=== PATIENT | male | born 1985 | race Two or more races ===

== ENCOUNTER 2024-12-10 12:31 | Inpatient (IN) | payer MEDICARE, MEDICAID, SELFPAY ==
[2024-12-10 13:19] VITALS: BP 171/79; PULSE 110; RESP 22; TEMP 36.9; O2SAT 95
[2024-12-10 13:22] VITALS: BMI 85.6
--- NOTE | 2024-12-10 13:35 | XR_ITS ---
Examination: Venous duplex lower extremity sonogram, bilateral. Date and time of exam: December 10, 2024 1421 hours INDICATIONS: Nonhealing pain and swelling and wounds in the left ankle beginning 2 days ago Technique: Multiple sonographic images of the deep venous system have been obtained. B-mode/2-D grayscale imaging of vascular structures and Doppler spectral analysis (waveforms) and color performed Both legs are examined. Findings: No diagnostic visualization right popliteal perineal posterior tibial veins, left distal superficial femoral-popliteal perineal posterior tibial and greater saphenous veins No DVT demonstrated IMPRESSION: Severely limited study secondary to edema No acute DVT demonstrated
--- NOTE | 2024-12-10 13:36 | XR_ITS ---
Examination: PA chest single view TECHNIQUE: Upright PA chest single view Date and time: December 10, 2024 1420 hours INDICATIONS: Shortness of breath and weakness today. FINDINGS: The entire study is severely degraded by patient motion IMPRESSION: Nondiagnostic study, repeat
--- NOTE | 2024-12-10 13:37 | EDNOTE_ITS ---
<Statement entered by Jeanne Mendez MD - 12/24/24 06:26> I, Jeanne Mendez MD, have reviewed the history, exam, and assessment of the patient. I have evaluated the patient independently and agree with the plan of care documented by [ ]. All diagnostic studies were reviewed and discussed. I confirm the diagnosis as documented by the Resident. I was present during the Medical Decision Making for this patient. The patient's plan of care was created between myself and the Resident and consistent with our discussion of the patient's case. ED General RME/HPI General Chief complaint: General Adult/Misc Complain Stated complaint: L) FOOT SWOLLEN/WEEPING Time Seen by Provider: 12/10/24 13:32 Arrival date/time: 12/10/24 12:31 RME / HPI RME / HPI narrative: 29-year-old male with past medical history of schizophrenia due to an open wound on his left lower extremity. Patient's mother was at bedside and help with the history taking. Patient stated that he has been having swelling for the past few days and that around 2 days ago he noticed blistering on his left lower extremity. Today when he went to the bathroom one of the blisters ruptured and there was clear discharge. Patient stated that he has been having some chills and some subjective fevers, but denies having any other associated symptoms at this time. Denies any smoking, drugs, alcohol Related Data Allergies Allergy/AdvReac Type Severity Reaction Status Date / Time No Known Allergies Allergy Verified 12/10/24 12:36 Review of Systems Review of Systems Systems Reviewed: All systems reviewed, normal except as documented Past Medical History Past Medical History Comments PMH COMMENT: PMH: Schizophrenia Allergies: NKDA Social Hx: Denies any smoking, drugs, alcohol ED Exam Narrative Physical exam: Gen: A&O X 3, NAD, obese HEENT: NCAT, EOMI, Pupils reactive FRAN, not icteric. External ears normal. No rhinorrhea. Moist mucous membranes. Neck: short neck, full range of motion, no observable masses, No meningeal sign. Lungs: No Respiratory distress, clear bilateral. CV: RRR, no murmurs. Abdomen: Soft, nondistended, nontender, No rebound tenderness. MSK: No joint swelling, no redness, peripheral pulses presents, lumbar with no edema. Left lower extremity swollen with an open wound anteriorly, but no current discharge at this time. Venous stasis changes. Skin: No rashes, petechiae, lesions. Neuro: No focal neurological deficits appreciated, sensory and motor intact. Psych: Cooperative, flat effect. Course Quality Measures none Orders Category Date Time Status COVID-19 Screening Questionnaire NOW Care 12/10/24 15:35 Active Decision to Admit X1 Care 12/10/24 15:35 Active IV [Insert IV] NOW Care 12/10/24 15:38 Active Wound Care [Wound Care] NOW Care 12/10/24 13:35 Active CXRP [XR chest 1V portable] Stat Exams 12/10/24 13:36 Completed US venous doppler LE BI Stat Exams 12/10/24 13:35 Completed CBC [CBC] Stat Lab 12/10/24 14:10 Completed CMP [Comprehensive Metabolic Panel] Stat Lab 12/10/24 14:10 Completed CRP [C-Reactive Protein] Stat Lab 12/10/24 15:16 Ordered Drug Screen,Urine Stat Lab 12/10/24 13:36 Ordered ESR [Sed Rate (ESR)] Stat Lab 12/10/24 15:16 Ordered Lactic Acid [Lactate (Lactic Acid)] Stat Lab 12/10/24 14:10 Completed Magnesium Stat Lab 12/10/24 14:10 Completed Procalcitonin Stat Lab 12/10/24 14:10 Completed UA [Urinalysis] Stat Lab 12/10/24 13:36 Ordered Doxycycline Inj [Vibramycin Inj] 100 mg Med 12/10/24 15:37 Active Sodium Chloride 0.9% (Pop) [NS 0.9% mini bag] 100 ml IV X1 cefTRIAXone/D5w 1gm IV premix [Rocephin/D5w 1gm IV Med 12/10/24 15:38 Active premix] 1 gm in 50 ml IV X1 Vital Signs Vital signs: Vital Signs Temperature 98.4 F 12/10/24 13:19 Pulse Rate 110 H 12/10/24 13:19 Respiratory Rate 22 H 12/10/24 13:19 Blood Pressure 171/79 H 12/10/24 13:19 Pulse Oximetry (%) 95 12/10/24 13:19 Oxygen Delivery Method Room Air 12/10/24 13:19 Discharge Plan Plan Patient Disposition: Admit Acute Care w/in Hospital Prescriptions/Referrals Referrals: No Primary/Family,Physician [Primary Care Provider] - In 1 week Problem List Clinical Impression: Cellulitis Patient/Caregiver Discharge Instructions Print Language: Cymraes Stand Alone Forms: Lynn Award Info., Patient Portal Info Letter MDM Narrative MDM hospital course: Patient was seen and evaluated by myself on arrival. Diagnostic labs and imaging were ordered. Patient's WBC was 18.5, lactic acid was normal, but procalcitonin was elevated at 1.6. Ordered Rocephin and doxycycline. 1535: Spoke with IM team for hospital admission for cellulitis and need for antibiotics. Will come and assess the patient for admission. Case disclosed with Attending Dr. Vanessa Saunders PGY2 Disclaimer: Even though this this note was dictated by speech recognition and even though it was carefully revised there may still be minor errors in tree killer due to voice recognition software. Medication Administration(s) Medication Administration History Doxycycline Hyclate 100 mg/ (Sodium Chloride) 100 mls @ 100 mls/hr IV X1 ONE Stop: 12/10/24 16:36 Ceftriaxone Sodium/Dextrose (Rocephin/D5w 1gm Iv Premix) 1 gm in 50 mls @ 100 mls/hr IV X1 ONE Stop: 12/10/24 16:07
[2024-12-10 14:23] LABS: Lactate (Lactic Acid) 1.4 mMol/L (0.4-2.0)
[2024-12-10 14:25] LABS: Basophils # (Auto) 0.1 Thou/mm3 (0.0-0.2); Basophils % (Auto) 0 % (0-2.5); Eosinophils # (Auto) 0.2 Thou/mm3 (0.0-0.5); Eosinophils % (Auto) 1 % (0-10); Hematocrit 41.3 % (41.0-53.0); Hemoglobin 12.7 g/dL (13.5-16.0); Immature Granulocytes Auto 0.12 Thou/mm3 (0.00-0.00); Lymphocytes # (Auto) 2.1 Thou/mm3 (1.0-4.8); Lymphocytes % (Auto) 12 % (10-50); Mean Corpuscular HGB Conc 30.8 g/dl (31.0-37.0); Mean Corpuscular Hemoglobin 26.4 pg (25.0-35.0); Mean Corpuscular Volume 86 fL (80-100); Monocytes # (Auto) 1.0 Thou/mm3 (0.0-0.8); Monocytes % (Auto) 5 % (0-12); Neutrophils # (Auto) 15.0 Thou/mm3 (1.8-7.7); Neutrophils % (Auto) 81 % (37-80); Nucleated Red Blood Cell # 0.00 Thou/mm3 (0.00-0.00); Nucleated Red Blood Cell % 0 /100 WBC (0); Platelet Count 168 Thou/mm3 (140-440); RDW Standard Deviation 47.2 fL (35.1-43.9); Red Blood Count 4.81 Miln/mm3 (4.50-5.90); White Blood Count 18.5 Thou/mm3 (3.8-10.6)
[2024-12-10 15:01] LABS: Alanine Aminotransferase 14 U/L (10-49); Albumin, Serum 3.9 gm/dL (3.5-5.0); Albumin/Globulin Ratio 1.1 (1.2-2.2); Alkaline Phosphatase 88 U/L (46-116); Anion Gap 11 (7-16); Aspartate Amino Transferase 20 U/L (0-34); BUN/Creatinine Ratio 12 Ratio (12-20); Bilirubin,Total 0.5 mg/dL (0.3-1.2); Blood Urea Nitrogen 14 mg/dL (9-23); Calcium 9.4 mg/dL (8.3-10.6); Calcium (Corrected) 9.5 mg/dL (8.5-10.1); Carbon Dioxide 27.5 mMol/L (20.0-31.0); Chloride 100 mMol/L (98-107); Creatinine (Component) 1.2 mg/dL (0.6-1.3); Estimated Creatinine Clearance 176.8 mL/min (>60); Globulin 3.6 gm/dL (2.3-3.5); Glucose 135 mg/dL (74-106); Magnesium 1.2 mg/dL (1.6-2.6); Osmolality,Calculated 278 (275-295); Potassium 3.4 mMol/L (3.4-5.1); Procalcitonin 1.60 ng/ml (0.0-0.49); Sodium 138 mMol/L (136-145); Total Protein 7.5 gm/dL (5.7-8.2); eGFR > 60 See Note
--- NOTE | 2024-12-10 16:20 | ESHP_ITS ---
<Statement entered by Harpreet Murphy MD - 12/10/24 17:11> I Harpreet Murphy MD reviewed the note and agree with the resident's assessment & plan with modifications/additions/exceptions as below. I have personally reviewed labs, imaging, home meds/prior records, examined the patient, formulated and discussed management plan with the IM team. A 29-year-old male with history of schizophrenia, hypothyroidism, BMI 84 presented to ED with left lower extremity pain swelling and open wound failing outpatient management. Patient had redness, erythema for the past month and had been on antibiotic without any significant improvement. Will admit for lower extremity cellulitis, started on Rocephin and doxycycline empirically, electrolyte replacement, continue IV fluid resuscitation. Low risk for deep tissue infection based on clinical findings and lab workup, consult wound care for management. <Statement entered by Tyrell Love MD - 12/10/24 16:59> Patient was examined and case was reviewed with team including attending physician. Note reviewed, I agree with most of its contents and agree with the patient's care as documented by Dr. Foster 29-year-old male with past medical history of hypothyroidism, schizophrenia on aripripazole, depression anxiety, severe obesity who presented to the ED due to left lower extremity wound. Per the mother who was at the bedside patient has been having these blisters growing in the bilateral lower extremities have been healing. However last night mother noticed a blister on the left lower extremity that continue to grow and expand causing the patient 8 out of 10 pain. Later while walking the patient's blister exploded with a lot of serosanguineous fluid has been leaking of the extremity. He went to [facility] and was given an antifungal cream which relieved his initial symptoms for 1 day but later symptoms continue to worsen. Patient has very severe edema in the bilateral lower extremities likely secondary to his severe obesity also causing shortness of breath with exertion. Patient was admitted for left lower extremity cellulitis requiring IV antibiotics therapy. A1c was ordered as patient likely has underlying diabetes additionally we will cover empirically with IV Zosyn and doxycycline to cover for Pseudomonas and MRSA. Will continue to follow with a.m. labs. Case discussed with my attending Dr. Jeffrey Love MD PGY-2 Disclaimer: Despite multiple revisions, due to the dictation software being used, the document bellow may not be free of grammatical errors including phonetic/typographic errors. However, this does not deter from our commitment to providing health care in the patient's best interest in mind. Documentation for date of: 12/10/24 HPI History of Present Illness Chief complaint: left lower extremity open wound History of present illness: This is a 29 y.o male with past medical history of morbid obesity, schizophrenia, depression, anxiety, and hypothyrodism who presents to the emergency department for evaluation for left lower extremity open wound. Patient's mother was at bedside and help with the history taking. Patient noted to have blisters in his left lower extremity since last month with associated edema that started a few days ago. Patient was showering today when he noticed that one of the blisters ruptured and clear liquid was discharged. Patient has had subjective fever and chills at times. Patient denies any nausea, vomiting, chest pain or diarrhea. Patient admits to some dyspnea on exertion. Patient went to urgent care on 11/28/24 for the same complaint and was prescribed with 0.1% triamcinolone cream which provided relief at first but symptoms persisted. Patient currently reports a 8/10 pain in his LLE and denies any paresthesia. Allergies: NKDA PSH: denies PMH:morbid obesity, schizophrenia, depression, anxiety, and hypothyrodism SH: denies tobacco, alcohol and drug use Exam Vital Signs Temp Pulse Resp BP Pulse Ox O2 Del Method 98.4 F 110 H 22 H 171/79 H 95 Room Air 12/10/24 13:19 12/10/24 13:19 12/10/24 13:19 12/10/24 13:19 12/10/24 13:19 12/10/24 13:19 Narrative Exam General: Very obese body habitus, poor hygiene, in no acute distress HEENT: NCAT, anicteric sclera bilaterally Neck: Trachea midline, no thyromegaly Lungs: CTAB, in no respiratory distress. tachypnea of 22 CV: Tachycardia with regular rhythm. No murmurs or gallops appreciated. +2 pulses at DP bilaterally SKin: Venous stasis noted in legs. An approximately 5-0pdq2-5lz open wound noted on anterior distal left tibia with active oozing of clear/yellow discharge. No pus noted. Ext: LLE is erythemaous and edematous from ankle to mid left vo. No pitting edema noted. Neuro: No focal neurological deficits appreciated, sensory and motor intact. Psych: Cooperative, flat effect. Results: Labs 12/10/24 14:10 12/10/24 14:10 Labs: Short CBC 12/10/24 Range/Units 14:10 WBC 18.5 H (3.8-10.6) Thou/mm3 Hgb 12.7 L (13.5-16.0) g/dL Hct 41.3 (41.0-53.0) % Plt Count 168 (140-440) Thou/mm3 BMP 12/10/24 14:10 Sodium 138 Potassium 3.4 Chloride 100 Carbon Dioxide 27.5 BUN 14 Creatinine 1.2 Glucose 135 H Calcium 9.4 Liver Function 12/10/24 Range/Units 14:10 Total Bilirubin 0.5 (0.3-1.2) mg/dL AST 20 (0-34) U/L ALT 14 (10-49) U/L Alkaline Phosphatase 88 (46-116) U/L Albumin 3.9 (3.5-5.0) gm/dL Quality Measures Quality Measures none Medications Home Medications and Allergies Allergies Allergy/AdvReac Type Severity Reaction Status Date / Time No Known Allergies Allergy Verified 12/10/24 12:36 Visit Medications Discontinued Medications Doxycycline Hyclate 100 mg/ (Sodium Chloride) 100 mls @ 100 mls/hr IV X1 ONE Stop: 12/10/24 16:36 Ceftriaxone Sodium/Dextrose (Rocephin/D5w 1gm Iv Premix) 1 gm in 50 mls @ 100 mls/hr IV X1 ONE Stop: 12/10/24 16:07 Assessment & Plan Plan 29M with PMH of morbid obesity, schizophrenia, depression, anxiety, and hypothyrodism who presents to the ED with blisters and LLE edema [id number] and open wound of LLE x1day. One of the blisters ruptured when taking shower today with clear discharge. Reports subjective fever, chills and dyspnea on exertion. On exam, there is an approximately 5-6cm x 3-4cm open wound noted on anterior distal left tibia with active oozing of clear/yellow discharge. No pus noted. LLE is erythemaous and edematous from ankle to mid left vo. #SIRS due to cellulitis of LLE afebrile, RR of 22, HR of 110, WBC of 18.5 with left shift Lactate 1.4, procalcitonin 1.6, BMP unremarkable US with no evidence of DVT CXR unremarkable Plan: -Discontinue Rocephin - Continue Doxycyclin PO 100 BID (start 12/10) - Start Zosyn 3.375 q8hr (start 12/10) - Monitor vital signs - Trend WBC - Referral placed for wound care - Prn tylenol for pain/fever - Will consult ID/surgery if no response with IV antibiotics - IVF maintenance at rate of 100 - Pending blood culture - Pending CRP and ESR #Schizphrenia #Depression #Anxiety Chronic. managed with medications plan: -Will resume home meds once med rec is done #Hypothyrodism Chronic. Managed with medications Plan: - Will resume home med once med rec is done -Ordered TSH #Hypomagnesemia Mg of 1.2 in the ED Plan: -Replete Mg -CTM #Morbid obesity BMI of 85.7 Plan: -Ordered HbA1C, Liver panel, and lipid panel Dispo: Admit to med/surg DVT prophylaxis: Lovenox GI prophylaxis: None Bowel reg: None Diet: Low sodium (Will change to low cons carb with low sodium if found to be diabetic) Pain mgmt: prn Tylenol Lines: peripheral Code status: Full code Plan discussed with Dr. Murphy and Senior resident Dr. Omid Foster, DO PGY1
[2024-12-10 16:55] VITALS: BP 140/103; PULSE 101; PULSE 106; RESP 16; RESP 17; O2SAT 94
[2024-12-10] MEDS: PIPER/TAZO 3.375 GM PREMIX 3.375 GM/50 ML BAG IV (17:08)
[2024-12-10] MEDS: SODIUM CHLORIDE 0.9% 1000 ML 1,000 ML 100 ML IV (17:08)
[2024-12-10 17:50] LABS: Alanine Aminotransferase 15 U/L (10-49); Albumin, Serum 3.9 gm/dL (3.5-5.0); Alkaline Phosphatase 91 U/L (46-116); Aspartate Amino Transferase 21 U/L (0-34); Bilirubin,Direct 0.2 mg/dL (0.0-0.3); Bilirubin,Total 0.5 mg/dL (0.3-1.2); Cardiac Risk Estimate 3.9 RATIO (4.0-6.7); Cholesterol 134 mg/dL (132-200); HDL Cholesterol 34 mg/dL (40-60); LDL Cholesterol,Calculated 70 mg/dL (0-130); Thyroid Stimulating Hormone 13.74 uIU/mL (0.55-4.78); Total Protein 7.6 gm/dL (5.7-8.2); Triglycerides 148 mg/dL (30-150)
[2024-12-10 17:59] LABS: C-Reactive Protein 26.5 mg/dL (0.0-0.9)
[2024-12-10 18:00] LABS: Glucose Estimated Average 137 mg/dL (80-131); Hemoglobin A1C 6.4 % Hgb (4.8-6.0)
[2024-12-10 18:21] LABS: Sed Rate (ESR) 124 mm/hr (0-15)
[2024-12-10] MEDS: Magnesium Sulfate 4 GM Ivpb 4 GM/50 ML BAG IV (18:44)
[2024-12-10 20:35] VITALS: BP 143/103; PULSE 103; RESP 15; TEMP 36.9; O2SAT 93
--- NOTE | 2024-12-10 22:35 | PC.NURSE ---
per mother pt [facility] [address] [facility] [address] tel# [phone].
[2024-12-11] VITALS (7 sets, daily range): BP systolic 118–141; BP diastolic 73–99; PULSE 93–107; RESP 12–93; TEMP 36.7–37; O2SAT 90–99
[2024-12-11] MEDS: DOXYCYCLINE INJ 100 MG in SODIUM CHLORIDE 0.9% (POP) 100 ML IV ×3 (00:13→21:58)
[2024-12-11] MEDS: PIPER/TAZO 3.375 GM PREMIX 3.375 GM/50 ML BAG IV ×4 (01:44→23:09)
[2024-12-11] MEDS: ACETAMINOPHEN 325 MG TABLET 650 MG PO ×2 (02:22→12:47)
--- NOTE | 2024-12-11 02:43 | PC.NURSE ---
pt advised to use urinal for urine specimen, assisted pt to restroom- Pt had bm and voided, but pt was not able to collect urine in urinal.
--- NOTE | 2024-12-11 03:18 | PC.NURSE ---
pt has occasional several short laughs, giggles all by himself.
[2024-12-11 05:40] LABS: Basophils # (Auto) 0.0 Thou/mm3 (0.0-0.2); Basophils % (Auto) 0 % (0-2.5); Eosinophils # (Auto) 0.4 Thou/mm3 (0.0-0.5); Eosinophils % (Auto) 3 % (0-10); Hematocrit 37.7 % (41.0-53.0); Hemoglobin 11.6 g/dL (13.5-16.0); Immature Granulocytes Auto 0.06 Thou/mm3 (0.00-0.00); Lymphocytes # (Auto) 1.4 Thou/mm3 (1.0-4.8); Lymphocytes % (Auto) 10 % (10-50); Mean Corpuscular HGB Conc 30.8 g/dl (31.0-37.0); Mean Corpuscular Hemoglobin 25.9 pg (25.0-35.0); Mean Corpuscular Volume 84 fL (80-100); Monocytes # (Auto) 0.6 Thou/mm3 (0.0-0.8); Monocytes % (Auto) 4 % (0-12); Neutrophils # (Auto) 11.7 Thou/mm3 (1.8-7.7); Neutrophils % (Auto) 82 % (37-80); Nucleated Red Blood Cell # 0.00 Thou/mm3 (0.00-0.00); Nucleated Red Blood Cell % 0 /100 WBC (0); Platelet Count 155 Thou/mm3 (140-440); RDW Standard Deviation 45.4 fL (35.1-43.9); Red Blood Count 4.48 Miln/mm3 (4.50-5.90); White Blood Count 14.2 Thou/mm3 (3.8-10.6)
[2024-12-11 06:06] LABS: Alanine Aminotransferase 13 U/L (10-49); Albumin, Serum 3.5 gm/dL (3.5-5.0); Albumin/Globulin Ratio 1.1 (1.2-2.2); Alkaline Phosphatase 79 U/L (46-116); Anion Gap 11 (7-16); Aspartate Amino Transferase 18 U/L (0-34); BUN/Creatinine Ratio 14 Ratio (12-20); Bilirubin,Total 0.6 mg/dL (0.3-1.2); Blood Urea Nitrogen 13 mg/dL (9-23); Calcium 8.9 mg/dL (8.3-10.6); Calcium (Corrected) 9.3 mg/dL (8.5-10.1); Carbon Dioxide 27.2 mMol/L (20.0-31.0); Chloride 101 mMol/L (98-107); Creatinine (Component) 0.9 mg/dL (0.6-1.3); Estimated Creatinine Clearance 212.2 mL/min (>60); Globulin 3.2 gm/dL (2.3-3.5); Glucose 118 mg/dL (74-106); Magnesium 1.6 mg/dL (1.6-2.6); Osmolality,Calculated 278 (275-295); Phosphorous 3.0 mg/dL (2.4-5.1); Potassium 3.3 mMol/L (3.4-5.1); Sodium 139 mMol/L (136-145); Total Protein 6.7 gm/dL (5.7-8.2); eGFR > 60 See Note
[2024-12-11] MEDS: SODIUM CHLORIDE 0.9% 1000 ML 1,000 ML 100 ML IV ×2 (06:35→21:59)
--- NOTE | 2024-12-11 08:12 | ESPR_ITS ---
<Statement entered by Tyrell oLve MD - 12/12/24 06:39> Patient was examined and case was reviewed with team including attending physician. Note reviewed, I agree with most of its contents and agree with the patient's care. Tyrell Love MD PGY-2 Documentation for date of: 12/11/24 Subjective Subjective Interval history: 12/11/24: NAEON. Patient remains afebrile with tachycardia of 107 and saturating 99% on RA. Patient was examined and evaluated at bedside. Still reports clear/yellow drainage from his LLE wound. Denies any subjective fever or shortness of breath. Reports a 3/10 pain in his LLE. Exam Vital Signs Temp Pulse Resp BP Pulse Ox O2 Del Method 98.1 F 107 H 18 141/89 H 99 Room Air 12/11/24 00:00 12/11/24 02:42 12/11/24 02:42 12/11/24 00:00 12/11/24 00:00 12/11/24 00:00 Narrative Exam General: Very obese body habitus, poor hygiene, in no acute distress HEENT: NCAT, anicteric sclera bilaterally Neck: Trachea midline, no thyromegaly Lungs: CTAB, in no respiratory distress. tachypnea of 22 CV: Tachycardia with regular rhythm. No murmurs or gallops appreciated. +2 pulses at DP bilaterally SKin: Venous stasis noted in legs. An approximately 5-4etl1-0aa open wound noted on anterior distal left tibia with active oozing of clear/yellow discharge. No pus noted. Ext: LLE is erythemaous and edematous from ankle to mid left vo. No pitting edema noted. Neuro: No focal neurological deficits appreciated, sensory and motor intact. Psych: Cooperative, flat effect. Objective Labs 12/12/24 06:30 12/12/24 06:30 Labs: Laboratory Results - last 24 hr 12/10/24 12/10/24 12/11/24 14:10 16:50 05:03 WBC 18.5 H 14.2 H RBC 4.81 4.48 L Hgb 12.7 L 11.6 L Hct 41.3 37.7 L MCV 86 84 MCH 26.4 25.9 MCHC 30.8 L 30.8 L RDW Std Deviation 47.2 H 45.4 H Plt Count 168 155 Neut % (Auto) 81 H 82 H Lymph % (Auto) 12 10 [place] % (Auto) 5 4 Eos % (Auto) 1 3 Baso % (Auto) 0 0 Neut # (Auto) 15.0 H 11.7 H Lymph # (Auto) 2.1 1.4 [place] # (Auto) 1.0 H 0.6 Eos # (Auto) 0.2 0.4 Baso # (Auto) 0.1 0.0 Immature Gran # (Auto) 0.12 H 0.06 H Absolute Nucleated RBC 0.00 0.00 Immature Gran % 1 H 0 Nucleated RBC % 0 0 ESR 124 H Sodium 138 139 Potassium 3.4 3.3 L Chloride 100 101 Carbon Dioxide 27.5 27.2 Anion Gap 11 11 BUN 14 13 Creatinine 1.2 0.9 Estim Creat Clear Calc 176.8 212.2 eGFR > 60 > 60 BUN/Creatinine Ratio 12 14 Glucose [address] Glu mg/dL 137 H Hemoglobin A1c 6.4 H Calculated Osmolality 278 278 Lactic Acid 1.4 Calcium 9.4 8.9 Corrected Calcium 9.5 9.3 Phosphorus 3.0 Magnesium 1.2 L 1.6 Total Bilirubin 0.5 0.5 0.6 Direct Bilirubin 0.2 AST 20 21 18 ALT 14 15 13 Alkaline Phosphatase 88 91 79 C-Reactive Prot, Quant 26.5 H Total Protein 7.5 7.6 6.7 Albumin 3.9 3.9 3.5 Globulin 3.6 H 3.2 Albumin/Globulin Ratio 1.1 L 1.1 L Triglycerides 148 Cholesterol 134 LDL Cholesterol, Calc 70 HDL Cholesterol 34 L Cholesterol/HDL Ratio 3.9 L Procalcitonin 1.60 H TSH 13.74 H Quality Measures Quality Measures none Assessment & Plan Assessment Current Active Medications: Generic Name Dose Route Start Last Admin Trade Name Freq PRN Reason Stop Dose Admin Acetaminophen 650 mg 12/10/24 16:06 Acetaminophen 325 Mg Tablet PO 01/09/25 16:05 Q6H PRN Fever >101.5 Acetaminophen 650 mg 12/10/24 16:06 12/11/24 02:22 Acetaminophen 325 Mg Tablet PO 01/09/25 16:05 650 mg Q6H PRN Administration PAIN SCALE 1-3 (mild Aripiprazole 15 mg 12/11/24 09:00 Aripiprazole 5 Mg Tablet PO 01/10/25 08:59 QDAY CARLA Dextrose 25 ml 12/10/24 18:34 Dextrose 50%-Water Inj 50 Ml Syringe IV 01/09/25 18:33 Q15MIN PRN BG 50-70 responsive npo pt Dextrose 50 ml 12/10/24 18:34 Dextrose 50%-Water Inj 50 Ml Syringe IV 01/09/25 18:33 Q15MIN PRN BG <50 OR BG <70 & pt unresponsive Enoxaparin Sodium 40 mg 12/11/24 09:00 Enoxaparin Sod Inj 40 Mg/0.4 Ml Syringe SC 12/25/24 08:59 QDAY CARLA Glucagon 1 mg 12/10/24 18:34 Glucagon Inj 1 Mg Vial IM Q15MIN PRN BG <70, and no IV access Doxycycline Hyclate 100 mg/ 100 mls @ 100 mls/hr 12/10/24 21:00 12/11/24 00:13 Sodium Chloride IV 12/17/24 20:59 100 mls/hr BID CARLA Administration Sodium Chloride 1,000 mls @ 100 mls/hr 12/10/24 16:18 12/11/24 06:35 Ns IV 12/12/24 16:17 100 mls/hr .Q10H CARLA Administration Piperacillin/Tazobactam/Dextrose 3.375 gm in 50 mls @ 12.5 mls/hr 12/10/24 22:00 12/11/24 06:32 Zosyn IV 12/17/24 21:59 12.5 mls/hr Q8HR CARLA Administration Magnesium Sulfate 4 gm in 50 mls @ 12.5 mls/hr 12/11/24 07:28 Magnesium Sulfate Ivpb IV 12/11/24 11:27 X1 ONE Insulin Human Lispro 0 unit 12/11/24 07:30 12/11/24 07:06 Insulin Lispro (Admelog) 1 Unit/0.01 Ml Unit SC 01/10/25 07:29 Not Given AC CARLA Protocol Levothyroxine Sodium 50 mcg 12/11/24 09:00 Levothyroxine Sodium 25 Mcg Tablet PO 01/10/25 08:59 ACBR CARLA Ondansetron HCl 4 mg 12/10/24 16:06 Ondansetron Inj 2 Mg/Ml Inj 2 Ml IVP 01/09/25 16:05 Q6H PRN NAUSEA OR VOMITING Protocol Pharmacy Consult 1 each 12/10/24 22:47 Pharmacy To Consult Patient XX 01/09/25 22:46 PRN PRN CONSULT Sertraline HCl 100 mg 12/11/24 09:00 Sertraline Hcl 25 Mg Tablet PO 01/10/25 08:59 QDAY CARLA Plan 39M with PMH of morbid obesity, schizophrenia, depression, anxiety, and hypothyrodism who presents to the ED with blisters and LLE edema [id number] and open wound of LLE x1day. One of the blisters ruptured when taking shower today with clear discharge. Reports subjective fever, chills and dyspnea on exertion. On exam, there is an approximately 5-6cm x 3-4cm open wound noted on anterior distal left tibia with active oozing of clear/yellow discharge. No pus noted. LLE is erythemaous and edematous from ankle to mid left vo. #SIRS due to cellulitis of LLE Improved. afebrile, RR of 22, HR of 110, WBC of 18.5 with left shift, Lactate 1.4, procalcitonin 1.6, CRP: 26.5, BMP unremarkable on admission. WBC now downtrending to 14.2, RR of 18, HR of 94. US with no evidence of DVT CXR unremarkable Plan: -Discontinue Rocephin - Continue Doxycyclin PO 100 BID (start 12/10) - Continue Zosyn 3.375 q8hr (start 12/10) - Monitor vital signs - Trend WBC - Referral placed for wound care - Prn tylenol for pain/fever - Will consult ID/surgery if no response with IV antibiotics - IVF maintenance at rate of 100 - Pending blood culture - Patient will need compression dressing upon discharge #DM Uncontrolled. A1C of 6.4% Plan: - SSI - DM education - Patient need to follow up with PCP outpatient for diabetes management - Patient will need to be started on Metformin after discharge #Schizphrenia #Depression #Anxiety Chronic. managed with medications plan: -Coninue home abilify and sertraline #Hypothyrodism Chronic. Managed with medications; however, patient's mother states that he does not take his medications properly when at home. TSH: 13.74 Plan: - Continue home levothyroxine -Advised patient and his mother to take his home levothyroxine on empty stomach for better absorption #Electrolyte Abnormality #Hypomagnesemia #Hypokalemia Mg of 1.6, K of 3.3 Plan: - Repleted electrolytes accordingly -CTM #Morbid obesity BMI of 85.7 Liver panel and Lipid panel within normal limits Plan: -Ordered CPAP qhs -CTM Dispo: Admit to med/surg DVT prophylaxis: Lovenox GI prophylaxis: None Bowel reg: None Diet: Low sodium with low cons carb Pain mgmt: prn Tylenol Lines: peripheral Code status: Full code Plan discussed with Dr. Gold and Senior resident Dr. Omid Foster DO PGY1 Attending Provider Attestation/Addendum Shea Foster DO, attest that I was physically present for the dumont portions of the service and evaluated the patient with the resident and I reviewed and discussed the case with the resident and agree with the resident's findings and plans of care as documented above Patient seen and evaluated this AM. Patient sitting up in recliner with compression wrapping around left LE. Patient with flat affect. Mother, aunt and uncle at bedside state that the patient does not like to take medication. Mother has to hid the medications including synthroid in his food. Patient does not leave his home and family requesting psychiatric eval as well. However, recommended outpatient f/u as we do not have any psychiatric services available. Patient is also calm and cooperative, no signs of active psychosis. Patient has no active complaints. Discussed with wound care nurse who had just seen patient prior to my evaluation. Wound appears to have improved from images taken on admission. Discussed with mother that the patient will need compression wrapping and elevation. Will f/u with blood cultures. Patient has otherwise been afebrile. Bcx have been NGTD x 24h. If patient continues to improve and remains stable, anticipate DC in next 24h. Continue with doxycycline and zosyn at this time.
[2024-12-11] MEDS: ENOXAPARIN SOD INJ 40 MG/0.4 ML SYRINGE SC (09:29)
[2024-12-11] MEDS: SERTRALINE HCL 25 MG TABLET 100 MG PO (09:30)
[2024-12-11] MEDS: LEVOTHYROXINE SODIUM 25 MCG TABLET 50 MCG PO (09:30)
[2024-12-11] MEDS: Magnesium Sulfate 4 GM Ivpb 4 GM/50 ML BAG IV (09:41)
--- NOTE | 2024-12-11 10:24 | PC.SS ---
Patient Julián Solano is a 39 Year old female admitted for Cellulititis. SS met with patient at bedside to discuss discharge plan. Patient reports he lives at home with his mother, Margaux Lake who is patients surrogate decision maker, [phone]. Patient is able to complete all ADL's independently and reports he does not utilize any source of DME to Assist with ambulation. PCP is Aren Love. At time of discharge patient will return back home. family will provide transportation home. Discharge Plan: Home Next of kin:Mother, Margaux Lake
[2024-12-11 10:33] LABS: Collection Type, Urine Voided
[2024-12-11 10:46] LABS: Bilirubin,Urine Negative (Negative); Blood,Urine Negative (Negative); Clarity,Urine Clear (Clear/Hazy); Color,Urine Yellow (Lt Yel-Yel); Glucose, Urine Negative (Negative); Ketones,Urine Negative (Negative); Leukocyte Esterase,Urine Negative (Negative); Nitrite,Urine Negative (Negative); PH,Urine 6.0 (5.0-7.0); Protein,Urine Negative (Neg - Trace); RBC,Urine 2 /hpf (0-3); Specific Gravity,Urine 1.017 (1.001-1.035); Squamous Epithelial Cell,Urine 1 /hpf (0-5); Urobilinogen,Urine Negative mg/dL (0.0-1.0); WBC,Urine 1 /hpf (0-5)
[2024-12-11 10:53] LABS: Amphetamine/Methamp Scrn,U Negative (Negative); Barbiturate Screen,Urine Negative (Negative); Benzodiazepines Screen,Urine Negative (Negative); Benzoylecgonine Screen, Ur Negative (Negative); Fentanyl Screen,Urine Negative (Negative); Opiate Screen,Urine Negative (Negative); THC Screen,Urine Negative (Negative)
--- NOTE | 2024-12-11 23:11 | PC.NURSE ---
81% to 88% O2 sat on 1L/min/nc, pt asleep- Increased to 3L/min/nc with 92% O2 sat.
[2024-12-12] VITALS: BP 125/83; PULSE 94; RESP 18; TEMP 36.3; O2SAT 92
[2024-12-12 04:00] VITALS: BP 152/95; PULSE 88; RESP 20; TEMP 36.3; O2SAT 91
[2024-12-12] MEDS: PIPER/TAZO 3.375 GM PREMIX 3.375 GM/50 ML BAG IV (06:20)
[2024-12-12] MEDS: LEVOTHYROXINE SODIUM 25 MCG TABLET 50 MCG PO (06:20)
[2024-12-12 06:47] LABS: Basophils # (Auto) 0.1 Thou/mm3 (0.0-0.2); Basophils % (Auto) 0 % (0-2.5); Eosinophils # (Auto) 0.6 Thou/mm3 (0.0-0.5); Eosinophils % (Auto) 4 % (0-10); Hematocrit 40.1 % (41.0-53.0); Hemoglobin 12.4 g/dL (13.5-16.0); Immature Granulocytes Auto 0.15 Thou/mm3 (0.00-0.00); Lymphocytes # (Auto) 2.0 Thou/mm3 (1.0-4.8); Lymphocytes % (Auto) 15 % (10-50); Mean Corpuscular HGB Conc 30.9 g/dl (31.0-37.0); Mean Corpuscular Hemoglobin 26.3 pg (25.0-35.0); Mean Corpuscular Volume 85 fL (80-100); Monocytes # (Auto) 0.8 Thou/mm3 (0.0-0.8); Monocytes % (Auto) 6 % (0-12); Neutrophils # (Auto) 10.4 Thou/mm3 (1.8-7.7); Neutrophils % (Auto) 75 % (37-80); Nucleated Red Blood Cell # 0.00 Thou/mm3 (0.00-0.00); Nucleated Red Blood Cell % 0 /100 WBC (0); Platelet Count 185 Thou/mm3 (140-440); RDW Standard Deviation 46.6 fL (35.1-43.9); Red Blood Count 4.72 Miln/mm3 (4.50-5.90); White Blood Count 13.9 Thou/mm3 (3.8-10.6)
[2024-12-12 07:09] LABS: Alanine Aminotransferase 14 U/L (10-49); Albumin, Serum 3.7 gm/dL (3.5-5.0); Albumin/Globulin Ratio 1.0 (1.2-2.2); Alkaline Phosphatase 85 U/L (46-116); Anion Gap 10 (7-16); Aspartate Amino Transferase 17 U/L (0-34); BUN/Creatinine Ratio 11 Ratio (12-20); Bilirubin,Total 0.6 mg/dL (0.3-1.2); Blood Urea Nitrogen 9 mg/dL (9-23); Calcium 9.0 mg/dL (8.3-10.6); Calcium (Corrected) 9.2 mg/dL (8.5-10.1); Carbon Dioxide 27.7 mMol/L (20.0-31.0); Chloride 101 mMol/L (98-107); Creatinine (Component) 0.8 mg/dL (0.6-1.3); Estimated Creatinine Clearance 238.8 mL/min (>60); Globulin 3.6 gm/dL (2.3-3.5); Glucose 121 mg/dL (74-106); Magnesium 2.2 mg/dL (1.6-2.6); Osmolality,Calculated 277 (275-295); Phosphorous 3.3 mg/dL (2.4-5.1); Potassium 3.8 mMol/L (3.4-5.1); Sodium 139 mMol/L (136-145); Total Protein 7.3 gm/dL (5.7-8.2); eGFR > 60 See Note
[2024-12-12 08:00] VITALS: BP 163/78; PULSE 82; RESP 20; TEMP 36.4; O2SAT 99
--- NOTE | 2024-12-12 08:18 | PD.RESPRO ---
Documentation for date of: 12/12/24 Exam Vital Signs Temp Pulse Resp BP Pulse Ox O2 Del Method 97.3 F 88 20 152/95 H 91 L Nasal Cannula 12/12/24 04:00 12/12/24 04:00 12/12/24 04:00 12/12/24 04:00 12/12/24 04:00 12/12/24 04:00 Narrative Exam General: Very obese body habitus, poor hygiene, in no acute distress HEENT: NCAT, anicteric sclera bilaterally Neck: Trachea midline, no thyromegaly Lungs: CTAB, in no respiratory distress. tachypnea of 22 CV: Tachycardia with regular rhythm. No murmurs or gallops appreciated. +2 pulses at DP bilaterally SKin: Venous stasis noted in legs. An approximately [id number] open wound noted on anterior distal left tibia with active oozing of clear/yellow discharge. No pus noted. Ext: LLE is erythemaous and edematous from ankle to mid left vo. No pitting edema noted. Neuro: No focal neurological deficits appreciated, sensory and motor intact. Psych: Cooperative, flat effect. Objective Labs 12/12/24 06:30 12/12/24 06:30 Labs: Laboratory Results - last 24 hr 12/11/24 12/11/24 12/12/24 07:20 07:25 06:30 WBC 13.9 H RBC 4.72 Hgb 12.4 L Hct 40.1 L MCV 85 MCH 26.3 MCHC 30.9 L RDW Std Deviation 46.6 H Plt Count 185 D Neut % (Auto) 75 Lymph % (Auto) 15 [place] % (Auto) 6 Eos % (Auto) 4 Baso % (Auto) 0 Neut # (Auto) 10.4 H Lymph # (Auto) 2.0 [place] # (Auto) 0.8 Eos # (Auto) 0.6 H Baso # (Auto) 0.1 Immature Gran # (Auto) 0.15 H Absolute Nucleated RBC 0.00 Immature Gran % 1 H Nucleated RBC % 0 Sodium 139 Potassium 3.8 D Chloride 101 Carbon Dioxide 27.7 Anion Gap 10 BUN 9 Creatinine 0.8 Estim Creat Clear Calc 238.8 eGFR > 60 BUN/Creatinine Ratio 11 L Glucose 121 H Calculated Osmolality 277 Calcium 9.0 Corrected Calcium 9.2 Phosphorus 3.3 Magnesium 2.2 Total Bilirubin 0.6 AST 17 ALT 14 Alkaline Phosphatase 85 Total Protein 7.3 Albumin 3.7 Globulin 3.6 H Albumin/Globulin Ratio 1.0 L Ur Collection Type Voided Urine Color Yellow Urine Clarity Clear Urine pH 6.0 Ur Specific [place] 1.017 Urine Protein Negative Urine Glucose (UA) Negative Urine Ketones Negative Urine Blood Negative Urine Nitrite Negative Urine Bilirubin Negative Urine Urobilinogen (Auto) Negative Ur Leukocyte Esterase Negative Urine RBC 2 Urine WBC 1 Ur Squamous Epith Cells 1 Urine Bacteria None Urine Opiates Screen Negative Urine Fentanyl Screen Negative Ur Barbiturates Screen Negative U Amphetamin/Meth Scrn Negative U Benzodiazepines Scrn Negative U Cocaine Metab Screen Negative U Marijuana (THC) Screen Negative Quality Measures Quality Measures none Assessment & Plan Assessment Current Active Medications: Generic Name Dose Route Start Last Admin Trade Name Freq PRN Reason Stop Dose Admin Acetaminophen 650 mg 12/10/24 16:06 Acetaminophen 325 Mg Tablet PO 01/09/25 16:05 Q6H PRN Fever >101.5 Acetaminophen 650 mg 12/10/24 16:06 12/11/24 12:47 Acetaminophen 325 Mg Tablet PO 01/09/25 16:05 650 mg Q6H PRN Administration PAIN SCALE 1-3 (mild Aripiprazole 15 mg 12/11/24 09:00 12/11/24 09:30 Aripiprazole 5 Mg Tablet PO 01/10/25 08:59 15 mg QDAY CARLA Administration Dextrose 25 ml 12/10/24 18:34 Dextrose 50%-Water Inj 50 Ml Syringe IV 01/09/25 18:33 Q15MIN PRN BG 50-70 responsive npo pt Dextrose 50 ml 12/10/24 18:34 Dextrose 50%-Water Inj 50 Ml Syringe IV 01/09/25 18:33 Q15MIN PRN BG <50 OR BG <70 & pt unresponsive Enoxaparin Sodium 40 mg 12/11/24 09:00 12/11/24 09:29 Enoxaparin Sod Inj 40 Mg/0.4 Ml Syringe SC 12/25/24 08:59 40 mg QDAY CARLA Administration Glucagon 1 mg 12/10/24 18:34 Glucagon Inj 1 Mg Vial IM Q15MIN PRN BG <70, and no IV access Doxycycline Hyclate 100 mg/ 100 mls @ 100 mls/hr 12/10/24 21:00 12/11/24 21:58 Sodium Chloride IV 12/17/24 20:59 100 mls/hr BID CARLA Administration Sodium Chloride 1,000 mls @ 100 mls/hr 12/10/24 16:18 12/11/24 21:59 Ns IV 12/12/24 16:17 100 mls/hr .Q10H CARLA Administration Piperacillin/Tazobactam/Dextrose 3.375 gm in 50 mls @ 12.5 mls/hr 12/10/24 22:00 12/12/24 06:20 Zosyn IV 12/17/24 21:59 12.5 mls/hr Q8HR CARLA Administration Insulin Human Lispro 0 unit 12/11/24 07:30 12/11/24 18:06 Insulin Lispro (Admelog) 1 Unit/0.01 Ml Unit SC 01/10/25 07:29 Not Given AC CARLA Protocol Levothyroxine Sodium 50 mcg 12/11/24 09:00 12/12/24 06:20 Levothyroxine Sodium 25 Mcg Tablet PO 01/10/25 08:59 50 mcg ACBR CARLA Administration Ondansetron HCl 4 mg 12/10/24 16:06 Ondansetron Inj 2 Mg/Ml Inj 2 Ml IVP 01/09/25 16:05 Q6H PRN NAUSEA OR VOMITING Protocol Sertraline HCl 100 mg 12/11/24 09:00 12/11/24 09:30 Sertraline Hcl 25 Mg Tablet PO 01/10/25 08:59 100 mg QDAY CARLA Administration Plan 39M with PMH of morbid obesity, schizophrenia, depression, anxiety, and hypothyrodism who presents to the ED with blisters and LLE edema [id number] and open wound of LLE x1day. One of the blisters ruptured when taking shower today with clear discharge. Reports subjective fever, chills and dyspnea on exertion. On exam, there is an approximately 5-6cm x 3-4cm open wound noted on anterior distal left tibia with active oozing of clear/yellow discharge. No pus noted. LLE is erythemaous and edematous from ankle to mid left vo. #SIRS due to cellulitis of LLE Improved. afebrile, RR of 22, HR of 110, WBC of 18.5 with left shift, Lactate 1.4, procalcitonin 1.6, CRP: 26.5, BMP unremarkable on admission. WBC now downtrending to 14.2, RR of 18, HR of 94. US with no evidence of DVT CXR unremarkable Plan: -Discontinue Rocephin - Continue Doxycyclin PO 100 BID (start 12/10) - Continue Zosyn 3.375 q8hr (start 12/10) - Monitor vital signs - Trend WBC - Referral placed for wound care - Prn tylenol for pain/fever - Will consult ID/surgery if no response with IV antibiotics - IVF maintenance at rate of 100 - Pending blood culture - Patient will need compression dressing upon discharge #DM Uncontrolled. A1C of 6.4% Plan: - SSI - DM education - Patient need to follow up with PCP outpatient for diabetes management - Patient will need to be started on Metformin after discharge #Schizphrenia #Depression #Anxiety Chronic. managed with medications plan: -Coninue home abilify and sertraline #Hypothyrodism Chronic. Managed with medications; however, patient's mother states that he does not take his medications properly when at home. TSH: 13.74 Plan: - Continue home levothyroxine -Advised patient and his mother to take his home levothyroxine on empty stomach for better absorption #Electrolyte Abnormality #Hypomagnesemia #Hypokalemia Mg of 1.6, K of 3.3 Plan: - Repleted electrolytes accordingly -CTM #Morbid obesity BMI of 85.7 Liver panel and Lipid panel within normal limits Plan: -Ordered CPAP qhs -CTM Dispo: Admit to med/surg DVT prophylaxis: Lovenox GI prophylaxis: None Bowel reg: None Diet: Low sodium with low cons carb Pain mgmt: prn Tylenol Lines: peripheral Code status: Full code Plan discussed with Dr. Gold and Senior resident Dr. Lucio Foster, DO PGY1
[2024-12-12] MEDS: DOXYCYCLINE INJ 100 MG in SODIUM CHLORIDE 0.9% (POP) 100 ML IV (09:13)
[2024-12-12] MEDS: ENOXAPARIN SOD INJ 40 MG/0.4 ML SYRINGE SC (09:14)
[2024-12-12] MEDS: SERTRALINE HCL 25 MG TABLET 100 MG PO (09:14)
[2024-12-12 10:43] VITALS: BMI 85.8
--- NOTE | 2024-12-12 10:48 | ESDS_ITS ---
<Statement entered by Shea Gold DO - 12/13/24 07:31> I, Shea Gold DO, attest that I was physically present for the dumont portions of the service and evaluated the patient with the resident and I reviewed and discussed the case with the resident and agree with the resident's findings and plans of care as documented above <Statement entered by Vilma Bee MD - 12/12/24 17:52> I discussed with and supervised the recording studio intern physician who took care of this patient. I personally saw and examined the patient and discussed the assessment and plan with the entire medicine team, including my attending Dr. Gold, I agree with most of the assessment and plan as documented below Vilma Bee M.D. PGY-3 Planned Discharge Date 12/12/24 DS: Providers Provider Date of admission: 12/10/24 16:06 Primary care physician: Physician No Primary/Family Admitting Provider: Harpreet Murphy MD Attending Provider on Admission: Harpreet Murphy MD Consults: 12/10/24 16:34 Referral Wound Care Urgent Comment: 12/10/24 22:59 [facility] Referral - Knowledge Deficit Routine Comment: Positive screening for knowledge deficit needs. Attending Provider on DC: Dr. Gold Discharging Provider: Resident Alvina Anticipated date of discharge: 12/12/24 DS: Diagnosis Problem List Completed Was Problem List Reviewed/Reconciled?: Yes Hospital Course Hospital Course Hospital course: 39M with PMH of morbid obesity (BMI 85.9), schizophrenia, depression, anxiety, and hypothyrodism who presents to the ED with blisters and LLE edema and erythema [id number] and open wound of LLE x1day. Most of the history was provided by patient's mother as he does not speak much. One of the blisters ruptured with clear discharge when taking shower on the day of admission. Reportd subjective fever, chills and dyspnea on exertion. On exam, there was an approximately 5-6cm x 3-4cm open wound noted on anterior distal left tibia with active oozing of clear/yellow discharge. No pus noted. LLE was noted to erythemaous and edematous from ankle to mid left vo. Patient met the SIRS criteria due to cellulitis of the LLE with RR of 22, HR of 110, WBC of 18.5 with left shift, Lactate 1.4, procalcitonin 1.6, CRP: 26.5, and unremarkable BMP, UA, UDS on admission. US of LLE without any signs of DVT. CXR unremarkable. Patient was initially started on Rocephin which was discontinued and he was started on Doxycycline and Zosyn. Patient's LLE edema and erythema improved and WBC down-trended from 18.5 to 13.9, HR improved to 82. Adequate wound care was provided to the patient. Overall patient's condition improved since their admission. Patient will be discharged with prescription for oral doxycycline and augmenting for treatment of their left lower extremity cellulitis. Patient's vital signs remained stable however he was noted to have oxygen saturations in the 80s when sleeping. CPAP was ordered which was not tolerated by the patient. Spoke to director social for possibility of discharging patient with oxygen as need until evaluated with sleep studies with their PCP. Patient was noted to have A1C of 6.4%. Dietitian and pharmacy was consulted for patient education regarding diabetes diet and medical management. Patient will be discharged with metformin however will need to follow up with PCP in regards to correction management. Advised patient and family regarding lifestyle modifications for their morbid obesity despite normal LFTs and lipid panel and they need to follow up with their PCP in this regards as well. Patient has a history of hypothyroidism managed with levothyroxine, however he was noted to have TSH of 13.74. Patient's mother states that he does not take his medications properly at home and she has to cut his meds into small pieces and and mix them with food. Advised patient's mother that patient's thyroid medication should be taken on an empty stomach for better absorption. Patient will need to follow up with their PCP regarding their thyroid management as well. Patient's electrolyte abnormalities were repleted and monitored throughout their hospital stay. Patient is in stable condition for discharge. All questions answered and ED return precautions given. #SIRS due to cellulitis of LLE #DM #Schizphrenia #Depression #Anxiety #Hypothyrodism #Electrolyte Abnormality #Hypomagnesemia #Hypokalemia #Morbid obesity Plan discussed with Dr. Gold and Senior resident Dr. Cristal Foster, DO PGY1 Status at Discharge Functional status at discharge: independent ambulation Overall status at discharge: patient is back to baseline Time Spent with Patient Time attestation: Total time spent providing and/or coordinating discharge services: Time spent: Greater than 30 minutes Exam Vital Signs Temp Pulse Resp BP Pulse Ox O2 Del Method O2 Flow Rate 97.5 F 82 20 163/78 H 99 Nasal Cannula 4 12/12/24 08:00 12/12/24 08:00 12/12/24 08:00 12/12/24 08:00 12/12/24 08:00 12/12/24 08:00 12/12/24 08:00 Narrative Exam General: Very obese body habitus, poor hygiene, in no acute distress HEENT: NCAT, anicteric sclera bilaterally Neck: Trachea midline, no thyromegaly Lungs: CTAB, in no respiratory distress. CV: Tachycardia with regular rhythm. No murmurs or gallops appreciated. +2 pulses at DP bilaterally SKin: Venous stasis noted in legs. An approximately [id number] open wound noted on anterior distal left tibia with no active oozing of clear/yellow discharge (which was present on admission). No pus noted. Ext: LLE is erythemaous and edematous from ankle to mid left vo (improved from admission). No pitting edema noted. Neuro: No focal neurological deficits appreciated, sensory and motor intact. Psych: Cooperative, flat effect. Discharge Plan Plan Patient Disposition: Home w/HOME HEALTH Patient condition on transfer: Stable Care Plan Goals: Follow up with PCP 1 week after discharge for follow up of diabetes, sleep apnea, hypothyroidism, and obesity. You have been prescribed antibiotics for Cellulitis please take twice daily for 5 days. Also start taking Metformin for your pre-diabetes and practice lifestyle medications such as eating a healthy balanced diet and exercise daily. Elevate your leg to help with better blood flow to affected right leg. Should symptoms recur or worsen come back to the ED. Prescriptions/Referrals Prescriptions/Med Rec: New amoxicillin-pot clavulanate 875-125 mg tablet 1 tab PO BID 5 Days Qty: 10 0RF doxycycline monohydrate 100 mg capsule 100 mg PO BID Qty: 10 0RF metformin 500 mg tablet extended release 24 hr 500 mg PO BID Qty: 60 0RF Continued sertraline 100 mg tablet 100 mg PO QDAY levothyroxine [Euthyrox] 50 mcg tablet 50 mcg PO QDAY Rx Instructions: on an empty stomach. aripiprazole [Abilify] 15 mg tablet 15 mg PO QDAY Referrals: No Primary/Family,Physician [Primary Care Provider] - Patient/Caregiver Discharge Instructions Print Language: [place] Stand Alone Forms: [facility] Award Info., Patient Portal Info Letter Discharge Order Discharge Orders: Discharge (Routine); Ordered 12/12/24 Ordered By: Shea Gold Quality Discharge Quality Measures VTE prophylaxis
--- NOTE | 2024-12-12 11:52 | PC.CC ---
Request from Dr. Foster for education on pre-diabetes and weight loss. Met w/ patient and family at bedside. Patient mostly dozing, but woke for 2-3 minutes and briefly discussed his pre-diabetes. Brother was engaged and explained that patient is only capable of simple conversation due to schizophrenia, is mostly sedentary at home and physical activity consists of moving from one room to another or outside. Patient's meals are prepared by his mother who has to hide his medications into his food as patient will often refuse medications and MD visits. Brother states that while patient has not verbally expressed interest in weight loss, he can see that weight causes the patient physical discomfort. Brother states that patient's MD is Dr. Love who understands the patient's situation and is accommodating to telemedicine. Discussed Zepbound which would benefit patient's weight, pre-diabetes and RAYO. Wrote down name of medication and indicated that med is covered by [employer] and not Medicare Part D. Encouraged routine and appropriate use of levothyroxine which may also improve weight and daytime energy levels. Encouraged healthy nutrition choices and physical activity as patient is able. No additional questions at this time.
[2024-12-12 12:00] VITALS: BP 121/81; PULSE 91; RESP 20; TEMP 36.2; O2SAT 93
--- NOTE | 2024-12-12 12:51 | PC.SS ---
SS follow up note; SS contacted patient's nurse Roro to inform her that 's informed SS that patient will be needing 02 testing.
--- NOTE | 2024-12-12 13:05 | PC.SS ---
WheelChairs Patients diagnosis creates mobility limitations that significantly impairs ability to participate in the patients activities of daily living either in their entirety, or in a reasonable time frame in the home and the patients mobility limitations can not be sufficiently resolved with an appropriately fitted cane or walker. Also the use of a manual wheelchair will sufficiently improve patients ability to participate in the activities of daily living in the home and the patient is willing to use the wheelchair that is provided in the home. The patient has some one in the home that is available, willing and able to provide assistance with the wheelchair. OXYGEN Pt is discharged in a chronic stable state and has been treated optimally and has other respiratory needs. Oxygen has been ordered due to Covid and acute hypoxic respiratory failure. To secure a safe discharge for the pt home oxygen is needed. The pt is mobile within the home and will need continuous, portable O2 via nasal cannula. Pt is discharged in a chronic stable state and has been treated optimally and has other respiratory needs.? Oxygen has been ordered due to Covid and acute hypoxic respiratory failure.
--- NOTE | 2024-12-12 13:12 | PC.NURSE ---
Pt is sitting in chair, O2 sats are 93% on RA, after walking on RA O2 sats are 90%
--- NOTE | 2024-12-12 13:21 | PC.SS ---
WheelChairs Patients diagnosis creates mobility limitations that significantly impairs ability to participate in the patients activities of daily living either in their entirety, or in a reasonable time frame in the home and the patients mobility limitations can not be sufficiently resolved with an appropriately fitted cane or walker. Also the use of a manual wheelchair will sufficiently improve patients ability to participate in the activities of daily living in the home and the patient is willing to use the wheelchair that is provided in the home. The patient has some one in the home that is available, willing and able to provide assistance with the wheelchair.
--- NOTE | 2024-12-12 13:26 | PC.SS ---
Addendum entered by Allison Vigil 12/12/24 16:12: SS was contacted by Bharati from [facility], she informed SS that they are not able to provide Bariatric wheelchair for patient. SS attempted multiple times to contact [facility] at [phone], however SS was unable to contact, SS left voicemail with SS contact number. Addendum entered by Allison Vigil 12/12/24 15:26: SS follow up note; Wheelchair was delivered however was to small for patient's weight, [facility] delivery crew member informed Patient's brother that they will lemon picker wheelchair tomorrow at home and will provide bariatric wheel chair for patient. Original Note: SS follow up note; Patient did not qualify for home 02. however Bharati from [facility] informed SS that they would follow up with patient's PCP in regards to getting 02 for overnight 02.
--- NOTE | 2024-12-12 18:56 | PC.CM ---
Patient discharged with home health. I did not see patient had a preference so I sent to [facility].
--- NOTE | 2024-12-13 09:14 | PC.CC ---
[facility] accepted the pt. Booked [facility]. Start of care date is 12/13/24.
== END 2024-12-12 14:58 | disposition home health service (06) | DRG 603 ==
LOC: SERX 16:05 → SERHOLD 18:19 → S3SX 22:55 → SERHOLD 12-11 06:06
PROVIDERS: Admitting Provider Student in an Organized Health Care Education/Training Program; Visit Provider Student in an Organized Health Care Education/Training Program
DX: L03.116 Cellulitis of left lower limb (principal); Z68.45 Body mass index [BMI] 70 or greater, adult; L03.90 Cellulitis, unspecified; R65.10 Systemic inflammatory response syndrome (SIRS) of non-infectious origin without acute organ dysfunction; F20.9 Schizophrenia, unspecified; E03.9 Hypothyroidism, unspecified; R06.09 Other forms of dyspnea; E66.01 Morbid (severe) obesity due to excess calories; F32.A Depression, unspecified; F41.9 Anxiety disorder, unspecified; E83.42 Hypomagnesemia; E11.65 Type 2 diabetes mellitus with hyperglycemia; E87.6 Hypokalemia; Z79.84 Long term (current) use of oral hypoglycemic drugs; Z79.890 Hormone replacement therapy; Z79.899 Other long term (current) drug therapy
CPT/HCPCS: 36415; 71045; 80053; 80061; 80076; 80307; 81001; 83036; 83605; 83735; 84100; 84145; 84443; 85025; 85652; 86140; 87040; 93970; 94660; 96361; 96365; 96366; 99284; J1650; J2543; J3475; J3490; J7030; A9270